=== PATIENT | male | born 1985 | race Caucasian/White ===

== ENCOUNTER 2017-03-01 22:01 | Emergency (ER) | payer SELFPAY ==
[~2017-03-01] VITALS: Ht 177.8 cm; Wt 68.5 kg
[2017-03-01 22:06] VITALS: Ht 177.8 cm; Wt 68.5 kg
== END 2017-03-02 02:05 | disposition left against medical advice (07) ==
LOC: FTE 22:01
DX: Z53.21 Procedure and treatment not carried out due to patient leaving prior to being seen by health care provider (principal)